=== PATIENT | female | born 1960 | race American Indian/Alaskan Native ===

== ENCOUNTER 2017-01-03 10:01 | Emergency (ER) | payer MEDICARE ==
[2017-01-03 10:13] VITALS: BP 162/89
[2017-01-03] MEDS ORDERED: NORCO 5/325 PO ONE (12:30)
[2017-01-03] MEDS ORDERED: TYLENOL #3 PO ONE (12:38)
--- NOTE | 2017-01-03 12:56 | Emergency Department Report ---
Entered by WADE HADDAD, acting as scribe for SHAHID DENISE PA. HPI - General Chief Complaint: Pain General Time Seen by Provider: 01/03/17 11:25 - HPI HPI: 56 y/o female with a PMHx of arthritis presents to the ED c/o left upper dental pain that began several weeks ago. Rates dental pain a 10/10 in severity, throat , fever or chills. No shortness of breath or chest pain. Which she describes as aching in quality. Aggravated with eating and alleviated with nothing. Patient reports associated headache and neck pain, but she denies facial swelling, fever, chills, nausea, and vomiting. Denies seeing an fur blower operator for dental pain. Reports stop out of prescribed Methadone 1 month ago for her chronic arthritic pain. Took Tylenol for left upper dental pain with no relief. ED Past Medical Hx - Past Medical History Previous Medical History?: Yes Hx Arthritis: Yes (DJDChronic reflex) Hx Psychiatric Treatment: Yes (depression) Additional medical history: Chronic regional pain syndrome, Reflex sympathetic joint disease, neuropathy pain, herniated disc, hip dislocation, sciatic nerve - Surgical History Past Surgical History?: Yes Additional Surgical History: Left total hip replacement with dislocation - Family History Family history: hypertension - Social History Smoking Status: Current Every Day Smoker Substance Use Type: Prescribed - Medications Home Medications: Home Medications Medication Instructions Recorded Confirmed Last Taken Type ALPRAZolam [Xanax TAB] 1 mg PO BID PRN #14 tablet 06/26/13 Unknown Rx HYDROcodone/ACETAMINOPHEN 7.5 mg 06/26/13 06/26/13 Unknown History [Hydrocodone Acetaminophen 7.5/500 mg Tab] Hydrocodone Bit/Acetaminophen 1 each PO Q6H PRN #21 tablet 06/26/13 Unknown Rx [Lortab 10-500 mg] oxyCODONE ER [Oxycontin] 20 mg PO Q12H 06/26/13 06/26/13 Unknown History Ibuprofen [Motrin] 800 mg PO TID PRN #30 tablet 06/27/13 Unknown Rx Cyclobenzaprine [Flexeril 10mg] 10 mg PO QHS PRN #10 tablet 06/23/14 Unknown Rx HYDROcodone/APAP 5-325 [[place] 1 each PO Q6HR PRN #20 tablet 06/23/14 Unknown Rx 5/325] Cephalexin [Keflex] 500 mg PO Q12HR #20 cap 06/22/15 Unknown Rx oxyCODONE /ACETAMINOPHEN [Percocet 1 tab PO Q8HR PRN #15 tablet 06/22/15 Unknown Rx 5/325] Acetaminophen with Codeine 1 tab PO Q6HR #12 tab 06/26/16 Unknown Rx [Acetaminophen-Codeine #4 TAB] Penicillin Vk [Veetids TAB] 500 mg PO QID #56 tablet 06/26/16 Unknown Rx Acetaminophen/Codeine [Tylenol 1 tab PO Q8H PRN #6 tablet 01/03/17 Unknown Rx /Codeine # 3 tab] Amoxicillin [Amoxicillin TAB] 875 mg PO BID #20 tablet 01/03/17 Unknown Rx ED Review of Systems ROS: Stated complaint: TOOTHACHE Other details as noted in HPI Comment: All other systems reviewed and negative Constitutional: denies: chills, fever Eyes: denies: eye pain, eye discharge, vision change ENT: dental pain (left upper). denies: ear pain, throat pain Respiratory: denies: cough, shortness of breath, wheezing Cardiovascular: denies: chest pain, palpitations, edema, syncope Gastrointestinal: denies: nausea, vomiting Musculoskeletal: other (neck pain). denies: back pain, joint swelling, arthralgia Skin: denies: rash, lesions Neurological: headache. denies: numbness, paresthesias, confusion, abnormal gait, vertigo Physical Exam - Physical Exam Vital Signs: Vital Signs 01/03/17 10:09 Temperature 98.8 F Pulse Rate 67 Respiratory 22 Rate Blood Pressure 162/89 O2 Sat by Pulse 99 Oximetry General: General: well nourished, well developed, 56 year old female in no acute distress and nontoxic in appearance Physical Exam: Head: Normocephalic, atraumatic Mouth: Moist, no pharyngeal exudate or erythema. Uvula is midline and oral airway is patent. No facial swelling. No peritonsillar abscesses. Left upper # 9 #9 partial-thickness with dental decay and now pulp exposure ,#10 missing missing. Patient has no trismus or abnormality in time. He has gingival enlargement and poor dental care.. Nose: Normal external appearance, no drainage. Maxillary and frontal sinuses nontender to palpation Neck: Supple, no C-spine tenderness, no tracheal deviation. Nontender to palpation. no adenopathy Ears: Bilateral TMs ar without any redness, swelling, or drainage. Bilateral EAC without any redness, swelling, or drainage. Abdomen: Soft, nontender to palpation in all quadrants, normal bowel sounds in all quadrants and negative CVA tenderness bilaterally. Eyes: Bilateral pupils equal and reactive to light, bilateral EOM intact. Bilateral sclera and conjunctiva without injection. Normal accommodation. Lungs: Clear to auscultation bilaterally, no rhonchi, wheezes, or rales. Normal work of breathing. No use of accessory muscles Extremities: No CCE. +2 pulses. No neurovascular compromise. Cardiovascular: S1-S2, regular rate, regular rhythm. No murmurs. Skin: Clean, dry, and intact with no rash and no lesions Psych: Normal mood and behavior ED Course Vital Signs 01/03/17 10:09 Temperature 98.8 F Pulse Rate 67 Respiratory 22 Rate Blood Pressure 162/89 O2 Sat by Pulse 99 Oximetry - Reevaluation(s) Reevaluation #1: 01/03/17 12:41 Saint given Tylenol No. 3 2 tablets emergency room ED Medical Decision Making - Medical Decision Making ED course: Patient here complaining of toothache and based on physical finances patient has multiple dental caries, possible fracture with a gingival enlargement. Patient does not have a dentist. She also has chronic back pain from arthritis and she was been followed by a pain doctor but she says she does not have a pain doctor anymore. Thus the patient referred to orthopedic doctor and can manage her chronic medical problems. Discussed treatment with her and diagnosis and discharged home with her family with prescription for Tylenol 3 and amoxicillin to follow-up at [facility] dental clinic and orthopedic Dr. Ferreira Critical care attestation.: If time is entered above; I have spent that time in minutes in the direct care of this critically ill patient, excluding procedure time. ED Disposition Clinical Impression: Tooth ache, Chronic pain disorder, Enlargement, gingival, Dental caries Tooth fractures Qualifiers: Encounter type: initial encounter Fracture type: closed Qualified Code(s): S02.5XXA - Fracture of tooth (traumatic), initial encounter for closed fracture Disposition: TO HOME OR SELFCARE Is pt being admited?: No Does the pt Need Aspirin: No Condition: Stable Instructions: Toothache (ED), Dental Caries (ED), Chronic Back Pain (ED) Additional Instructions: Please follow up with [facility]. follow-up at [facility] for primary care visits to manage her medical problems. Follow-up with Dr. Ferreira who is orthopedic doctor for chronic pain On your record, it said you are allergic to Tylenol but you denied this not so therefore you requested Tylenol No. 3 to help with toothache. I will you give 6 tablets and you need to follow up with a dentist. Call today to schedule an appointment Prescriptions: Acetaminophen/Codeine [Tylenol /Codeine # 3 tab] 1 tab PO Q8H PRN #6 tablet PRN Reason: Toothache Amoxicillin [Amoxicillin TAB] 875 mg PO BID #20 tablet Referrals: [facility] [Outside] - 01/12/17 [facility] [Outside] - 01/04/17 YUNG FERREIRA MD [Staff Physician] - 3-5 Days Forms: Accompanied Note, Work/School Release Form(ED) This documentation as recorded by the CATIE balbuena JASMINE,accurately reflects the service I personally performed and the decisions made by me,SHAHID DENISE PA.
== END 2017-01-03 13:05 | disposition home or self-care (01) ==
LOC: ED 10:01
DX: S02.5XXA Fracture of tooth (traumatic), initial encounter for closed fracture (principal); G89.4 Chronic pain syndrome; K02.9 Dental caries, unspecified; F17.200 Nicotine dependence, unspecified, uncomplicated; F32.9 Major depressive disorder, single episode, unspecified; G62.9 Polyneuropathy, unspecified; M19.90 Unspecified osteoarthritis, unspecified site; Z96.642 Presence of left artificial hip joint; Z88.6 Allergy status to analgesic agent; Z88.8 Allergy status to other drugs, medicaments and biological substances; X58.XXXA Exposure to other specified factors, initial encounter; Y93.89 Activity, other specified; Y99.8 Other external cause status; Y92.89 Other specified places as the place of occurrence of the external cause
CPT/HCPCS: 99282

== ENCOUNTER 2017-01-16 01:29 | Emergency (ER) | payer MEDICARE ==
[2017-01-16 02:25] LABS: Basophils % (Auto) 0.8 % (0.0-1.8); Eosinophils % (Auto) 2.5 % (0.0-4.3); Hematocrit 41.5 % (30.3-42.9); Hemoglobin 13.9 gm/dl (10.1-14.3); Mean Corpuscular HGB Conc 34 % (30-34); Mean Corpuscular Hemoglobin 34 pg (28-32); Mean Corpuscular Volume 100 fl (79-97); Platelet Count 217 K/mm3 (140-440); Red Blood Count 4.13 M/mm3 (3.65-5.03); Red Cell Distribution Width 13.6 % (13.2-15.2); White Blood Count 3.3 K/mm3 (4.5-11.0)
[2017-01-16 02:39] LABS: Anion Gap 20 mmol/L; BUN/Creatinine Ratio 21.66; Blood Urea Nitrogen 13 mg/dL (7-17); Calcium 9.2 mg/dL (8.4-10.2); Carbon Dioxide 20 mmol/L (22-30); Chloride 103.5 mmol/L (98-107); Glucose 98 mg/dL (65-100); Potassium 4.4 mmol/L (3.6-5.0); Sodium 139 mmol/L (137-145)
[2017-01-16] MEDS ORDERED: DILAUDID IV ONE ×2 (12:47→13:54)
[2017-01-16] MEDS ORDERED: ZOFRAN IV ONE ×2 (12:47→13:54)
--- NOTE | 2017-01-16 13:06 | Emergency Department Report ---
ED General Adult HPI - General Chief complaint: Chest Pain Stated complaint: CHEST PAIN/HAND/FOOT PAIN Time Seen by Provider: 01/16/17 12:21 Source: patient Mode of arrival: Wheelchair Limitations: No Limitations - History of Present Illness Onset/Timin -: Gradual, year(s) Location: head, neck, chest, back, upper extremity, lower extremity Radiation: back Severity scale (0 -10): 4 Consistency: constant Improves with: none Worsens with: none Associated Symptoms: denies: confusion, chest pain, cough, diaphoresis, fever/ chills, headaches, loss of appetite, malaise, nausea/vomiting, rash, seizure, shortness of breath, syncope Treatments Prior to Arrival: none - Related Data Home Medications Medication Instructions Recorded Confirmed Last Taken HYDROcodone/ACETAMINOPHEN 7.5 mg 06/26/13 06/26/13 Unknown [Hydrocodone Acetaminophen 7.5/500 mg Tab] oxyCODONE ER [Oxycontin] 20 mg PO Q12H 06/26/13 06/26/13 Unknown Previous Rx's Medication Instructions Recorded Last Taken Type ALPRAZolam [Xanax TAB] 1 mg PO BID PRN #14 tablet 06/26/13 Unknown Rx Hydrocodone Bit/Acetaminophen 1 each PO Q6H PRN #21 tablet 06/26/13 Unknown Rx [Lortab 10-500 mg] Ibuprofen [Motrin] 800 mg PO TID PRN #30 tablet 06/27/13 Unknown Rx Cyclobenzaprine [Flexeril 10mg] 10 mg PO QHS PRN #10 tablet 06/23/14 Unknown Rx HYDROcodone/APAP 5-325 [[place] 1 each PO Q6HR PRN #20 tablet 06/23/14 Unknown Rx 5/325] Cephalexin [Keflex] 500 mg PO Q12HR #20 cap 06/22/15 Unknown Rx Acetaminophen with Codeine 1 tab PO Q6HR #12 tab 06/26/16 Unknown Rx [Acetaminophen-Codeine #4 TAB] Penicillin Vk [Veetids TAB] 500 mg PO QID #56 tablet 06/26/16 Unknown Rx Acetaminophen/Codeine [Tylenol 1 tab PO Q8H PRN #6 tablet 01/03/17 Unknown Rx /Codeine # 3 tab] Amoxicillin [Amoxicillin TAB] 875 mg PO BID #20 tablet 01/03/17 Unknown Rx oxyCODONE /ACETAMINOPHEN [Percocet 1 tab PO BID PRN #10 tablet 01/16/17 Unknown Rx 5/325 mg] Allergies Allergy/AdvReac Type Severity Reaction Status Date / Time naproxen [From Naprosyn] Allergy Nausea Verified 06/26/16 10:18 pregabalin [From Lyrica] Allergy Swelling Verified 06/26/16 10:18 acetaminophen [From [place]] AdvReac Vomiting Verified 06/26/16 10:18 hydrocodone bitartrate AdvReac Vomiting Verified 06/26/16 10:18 [From [place]] ED Review of Systems ROS: Stated complaint: CHEST PAIN/HAND/FOOT PAIN Other details as noted in HPI Comment: All other systems reviewed and negative ED Past Medical Hx - Past Medical History Hx Arthritis: Yes (DJDChronic reflex) Hx Psychiatric Treatment: Yes (depression) Additional medical history: Chronic regional pain syndrome, Reflex sympathetic joint disease, neuropathy pain, herniated disc, hip dislocation, sciatic nerve - Surgical History Past Surgical History?: Yes Additional Surgical History: Left total hip replacement with dislocation - Social History Smoking Status: Current Every Day Smoker Substance Use Type: Alcohol - Medications Home Medications: Home Medications Medication Instructions Recorded Confirmed Last Taken Type ALPRAZolam [Xanax TAB] 1 mg PO BID PRN #14 tablet 06/26/13 Unknown Rx HYDROcodone/ACETAMINOPHEN 7.5 mg 06/26/13 06/26/13 Unknown History [Hydrocodone Acetaminophen 7.5/500 mg Tab] Hydrocodone Bit/Acetaminophen 1 each PO Q6H PRN #21 tablet 06/26/13 Unknown Rx [Lortab 10-500 mg] oxyCODONE ER [Oxycontin] 20 mg PO Q12H 06/26/13 06/26/13 Unknown History Ibuprofen [Motrin] 800 mg PO TID PRN #30 tablet 06/27/13 Unknown Rx Cyclobenzaprine [Flexeril 10mg] 10 mg PO QHS PRN #10 tablet 06/23/14 Unknown Rx HYDROcodone/APAP 5-325 [[place] 1 each PO Q6HR PRN #20 tablet 06/23/14 Unknown Rx 5/325] Cephalexin [Keflex] 500 mg PO Q12HR #20 cap 06/22/15 Unknown Rx Acetaminophen with Codeine 1 tab PO Q6HR #12 tab 06/26/16 Unknown Rx [Acetaminophen-Codeine #4 TAB] Penicillin Vk [Veetids TAB] 500 mg PO QID #56 tablet 06/26/16 Unknown Rx Acetaminophen/Codeine [Tylenol 1 tab PO Q8H PRN #6 tablet 01/03/17 Unknown Rx /Codeine # 3 tab] Amoxicillin [Amoxicillin TAB] 875 mg PO BID #20 tablet 01/03/17 Unknown Rx oxyCODONE /ACETAMINOPHEN [Percocet 1 tab PO BID PRN #10 tablet 01/16/17 Unknown Rx 5/325 mg] ED Physical Exam - General Limitations: No Limitations General appearance: alert, in distress - Head Head exam: Present: atraumatic, normocephalic - Eye Eye exam: Present: normal appearance - ENT ENT exam: Present: normal exam, normal orophraynx, mucous membranes moist - Neck Neck exam: Present: normal inspection - Respiratory Respiratory exam: Present: normal lung sounds bilaterally. Absent: respiratory distress - Cardiovascular Cardiovascular Exam: Present: regular rate, normal rhythm. Absent: systolic murmur, diastolic murmur, rubs, gallop - GI/Abdominal GI/Abdominal exam: Present: soft, normal bowel sounds. Absent: distended, tenderness, guarding - Extremities Exam Extremities exam: Present: normal inspection - Back Exam Back exam: Present: normal inspection - Neurological Exam Neurological exam: Present: alert, oriented X3 - Psychiatric Psychiatric exam: Present: normal affect, normal mood - Skin Skin exam: Present: warm, dry, intact, normal color. Absent: rash ED Course Vital Signs 01/16/17 01/16/17 01/16/17 01:36 06:05 12:32 Temperature 98 F 98.5 F 98.8 F Pulse Rate 61 76 64 Respiratory 16 18 16 Rate Blood Pressure 146/77 143/97 Blood Pressure 139/63 [Left] O2 Sat by Pulse 100 96 100 Oximetry 01/16/17 13:05 Temperature Pulse Rate Respiratory 18 Rate Blood Pressure Blood Pressure [Left] O2 Sat by Pulse Oximetry ED Medical Decision Making - Lab Data Result diagrams: 01/16/17 01:43 01/16/17 01:43 Critical care attestation.: If time is entered above; I have spent that time in minutes in the direct care of this critically ill patient, excluding procedure time. ED Disposition Clinical Impression: Chronic pain disorder Disposition: DC-01 TO HOME OR SELFCARE Is pt being admited?: No Does the pt Need Aspirin: No Condition: Good Prescriptions: oxyCODONE /ACETAMINOPHEN [Percocet 5/325 mg] 1 tab PO BID PRN #10 tablet PRN Reason: Pain Referrals: PRIMARY CARE, [Primary Care Provider] - 3-5 Days Time of Disposition: 13:57
[2017-01-16 14:30] VITALS: BP 137/70
== END 2017-01-16 14:28 | disposition home or self-care (01) ==
LOC: ED 01:29
DX: G89.29 Other chronic pain (principal); R07.89 Other chest pain; R51 Headache; M54.2 Cervicalgia; M54.9 Dorsalgia, unspecified; M79.642 Pain in left hand; M79.641 Pain in right hand; M79.605 Pain in left leg; M79.604 Pain in right leg; F17.210 Nicotine dependence, cigarettes, uncomplicated; Z88.6 Allergy status to analgesic agent; Z88.8 Allergy status to other drugs, medicaments and biological substances
CPT/HCPCS: 36415; 80048; 84484; 85025; 93005; 93010; 96374; 96375; 96376; 99284; J1170; J2405

== ENCOUNTER 2018-10-26 16:39 | Emergency (ER) | payer MEDICARE ==
[2018-10-26 16:49] VITALS: BP 140/63
--- NOTE | 2018-10-26 16:52 | Emergency Department Report ---
Blank Doc - Documentation Documentation: 57 y o female presents to ED cc of left foot pain, states sciatin nerve was sev ered in surgery in 2012 states she has appt with pain management clinic but does not have an appt till next month denies injuries. states she ran out of meds and is in pain ACC
[2018-10-26] MEDS ORDERED: PERCOCET 5/325 PO ONE (17:34)
--- NOTE | 2018-10-26 17:37 | Emergency Department Report ---
ED Recheck HPI - General Chief Complaint: Pain General Stated Complaint: JOINT PAIN AND TOOTHACHE Time Seen by Provider: 10/26/18 16:50 Source: patient Mode of arrival: Ambulatory Limitations: No Limitations - History of Present Illness Initial Comments: This is a 57-year-old -[place] female presents to the ER for medication refills. Past medical history of degenerative joint disease, chronic reflex, depression, herniated disc, and neuropathy. Patient also complaining of toothache. Patient states she was supposed to have teeth pulled but something came up. States she was seen by pain management and only given 10 days' supply of medication because she had an appointment with the surgeon for possible surgery. Patient states she have a follow-up appointment with pain management on next Sunday but cannot wait till then do the pain. MD Complaint: medication refill request Returns Today for: request for prescription Symptoms Since Prior Visit: no new symptoms Context: ran out of medication Associated Symptoms: none - Related Data Home Medications Medication Instructions Recorded Confirmed Last Taken HYDROcodone/ACETAMINOPHEN 7.5 mg 06/26/13 06/26/13 Unknown [Hydrocodone Acetaminophen 7.5/500 mg Tab] oxyCODONE ER [Oxycontin] 20 mg PO Q12H 06/26/13 06/26/13 Unknown Previous Rx's Medication Instructions Recorded Last Taken Type ALPRAZolam [Xanax TAB] 1 mg PO BID PRN #14 tablet 06/26/13 Unknown Rx Hydrocodone Bit/Acetaminophen 1 each PO Q6H PRN #21 tablet 06/26/13 Unknown Rx [Lortab 10-500 mg] Ibuprofen [Motrin] 800 mg PO TID PRN #30 tablet 06/27/13 Unknown Rx Cyclobenzaprine [Flexeril 10mg] 10 mg PO QHS PRN #10 tablet 06/23/14 Unknown Rx HYDROcodone/APAP 5-325 [[place] 1 each PO Q6HR PRN #20 tablet 06/23/14 Unknown Rx 5/325] cephALEXin [Keflex] 500 mg PO Q12HR #20 cap 06/22/15 Unknown Rx Acetaminophen with Codeine 1 tab PO Q6HR #12 tab 06/26/16 Unknown Rx [Acetaminophen-Codeine #4 TAB] Penicillin Vk [Veetids TAB] 500 mg PO QID #56 tablet 06/26/16 Unknown Rx Acetaminophen/Codeine [Tylenol 1 tab PO Q8H PRN #6 tablet 01/03/17 Unknown Rx /Codeine # 3 tab] Amoxicillin [Amoxicillin TAB] 875 mg PO BID #20 tablet 01/03/17 Unknown Rx Oxycodone HCl/Acetaminophen 1 each PO BID #10 tablet 01/16/17 Unknown Rx [Percocet 10/325 mg] oxyCODONE /ACETAMINOPHEN [Percocet 1 tab PO BID PRN #10 tablet 01/16/17 Unknown Rx 5/325 mg] Allergies Allergy/AdvReac Type Severity Reaction Status Date / Time naproxen [From Naprosyn] Allergy Nausea Verified 10/26/18 16:42 pregabalin [From Lyrica] Allergy Swelling Verified 10/26/18 16:42 acetaminophen [From [place]] AdvReac Vomiting Verified 10/26/18 16:42 hydrocodone bitartrate AdvReac Vomiting Verified 10/26/18 16:42 [From [place]] ED Review of Systems ROS: Stated complaint: JOINT PAIN AND TOOTHACHE Other details as noted in HPI Constitutional: denies: chills, fever ENT: dental pain Respiratory: denies: cough, shortness of breath, wheezing Gastrointestinal: denies: abdominal pain, nausea, diarrhea Musculoskeletal: back pain. denies: joint swelling, arthralgia Skin: denies: rash, lesions Neurological: denies: headache, weakness, paresthesias Psychiatric: denies: anxiety, depression ED Past Medical Hx - Past Medical History Hx Arthritis: Yes (DJDChronic reflex) Hx Psychiatric Treatment: Yes (depression) Additional medical history: Chronic regional pain syndrome, Reflex sympathetic joint disease, neuropathy pain, herniated disc, hip dislocation, sciatic nerve - Surgical History Additional Surgical History: Left total hip replacement with dislocation - Social History Smoking Status: Current Every Day Smoker Substance Use Type: None - Medications Home Medications: Home Medications Medication Instructions Recorded Confirmed Last Taken Type ALPRAZolam [Xanax TAB] 1 mg PO BID PRN #14 tablet 06/26/13 Unknown Rx HYDROcodone/ACETAMINOPHEN 7.5 mg 06/26/13 06/26/13 Unknown History [Hydrocodone Acetaminophen 7.5/500 mg Tab] Hydrocodone Bit/Acetaminophen 1 each PO Q6H PRN #21 tablet 06/26/13 Unknown Rx [Lortab 10-500 mg] oxyCODONE ER [Oxycontin] 20 mg PO Q12H 06/26/13 06/26/13 Unknown History Ibuprofen [Motrin] 800 mg PO TID PRN #30 tablet 06/27/13 Unknown Rx Cyclobenzaprine [Flexeril 10mg] 10 mg PO QHS PRN #10 tablet 06/23/14 Unknown Rx HYDROcodone/APAP 5-325 [[place] 1 each PO Q6HR PRN #20 tablet 06/23/14 Unknown Rx 5/325] cephALEXin [Keflex] 500 mg PO Q12HR #20 cap 06/22/15 Unknown Rx Acetaminophen with Codeine 1 tab PO Q6HR #12 tab 06/26/16 Unknown Rx [Acetaminophen-Codeine #4 TAB] Penicillin Vk [Veetids TAB] 500 mg PO QID #56 tablet 06/26/16 Unknown Rx Acetaminophen/Codeine [Tylenol 1 tab PO Q8H PRN #6 tablet 01/03/17 Unknown Rx /Codeine # 3 tab] Amoxicillin [Amoxicillin TAB] 875 mg PO BID #20 tablet 01/03/17 Unknown Rx Oxycodone HCl/Acetaminophen 1 each PO BID #10 tablet 01/16/17 Unknown Rx [Percocet 10/325 mg] oxyCODONE /ACETAMINOPHEN [Percocet 1 tab PO BID PRN #10 tablet 01/16/17 Unknown Rx 5/325 mg] ED Physical Exam - General Limitations: No Limitations General appearance: alert, in no apparent distress - ENT ENT exam: Present: mucous membranes moist - Respiratory Respiratory exam: Present: normal lung sounds bilaterally. Absent: respiratory distress - Cardiovascular Cardiovascular Exam: Present: regular rate, normal rhythm. Absent: systolic murmur, diastolic murmur, rubs, gallop - GI/Abdominal GI/Abdominal exam: Present: soft, normal bowel sounds - Extremities Exam Extremities exam: Present: normal inspection - Back Exam Back exam: Present: full ROM, paraspinal tenderness - Neurological Exam Neurological exam: Present: alert, oriented X3 - Psychiatric Psychiatric exam: Present: normal affect, normal mood - Skin Skin exam: Present: warm, dry, intact, normal color. Absent: rash ED Course Vital Signs 10/26/18 16:47 Temperature 99.1 F Pulse Rate 85 Respiratory 16 Rate Blood Pressure 140/63 O2 Sat by Pulse 97 Oximetry ED Recheck MDM - Differential Diagnosis Prescription Refill(s) - Medical Decision Making This patient was examined by this provider. Vital signs normal and patient is in no acute distress. Acute on chronic low back pain. Patient is followed by pain management this days ran out of medication. Patient status follow-up with pain management next Sunday. Patient was given oxycodone 5/325 mg by mouth once while in the ER. Instructed to follow-up with pain management next Sunday for refills. Patient discharged from ER stable. Critical care attestation.: If time is entered above; I have spent that time in minutes in the direct care of this critically ill patient, excluding procedure time. ED Disposition Clinical Impression: Encounter for medication refill Chronic low back pain Qualifiers: Back pain laterality: bilateral Sciatica presence: without sciatica Qualified Code(s): M54.5 - Low back pain; G89.29 - Other chronic pain Disposition: TO HOME OR SELFCARE Is pt being admited?: No Does the pt Need Aspirin: No Condition: Stable Instructions: Chronic Back Pain (ED) Additional Instructions: Follow up with pain management as scheduled next Sunday for medication refills. Referrals: [facility] [Provider Group] - 3-5 Days [facility] [Provider Group] - 3-5 Days Time of Disposition: 17:39
== END 2018-10-26 17:59 | disposition home or self-care (01) ==
LOC: ED 16:39
DX: K08.89 Other specified disorders of teeth and supporting structures (principal); M54.5 Low back pain; G89.29 Other chronic pain; Z76.0 Encounter for issue of repeat prescription; F17.200 Nicotine dependence, unspecified, uncomplicated; M19.90 Unspecified osteoarthritis, unspecified site; F32.9 Major depressive disorder, single episode, unspecified; Z79.899 Other long term (current) drug therapy; Z88.6 Allergy status to analgesic agent; Z88.8 Allergy status to other drugs, medicaments and biological substances
CPT/HCPCS: 99282